=== PATIENT | female | born 1980 | race Caucasian/White ===

== ENCOUNTER 2021-07-05 07:23 | Emergency (ER) | payer BC ==
[~2021-07-05] VITALS: Ht 180.3 cm; Wt 113.6 kg
[2021-07-05 08:22] LABS: BASOPHILS % (AUTO) 0.4 % (0-1); EOSINOPHILS # (AUTO) 0.2 X10'3 (0-0.9); EOSINOPHILS % (AUTO) 3.6 % (0-6); HEMATOCRIT 42.2 % (35.0-45.0); HEMOGLOBIN 14.4 g/dl (12.0-16.0); LYMPHOCYTES % (AUTO) 29.2 % (21-51); MEAN CORPUSCULAR HEMOGLOBIN 28.6 PG (27.0-31.0); MEAN CORPUSCULAR HGB CONC 34.2 g/dL (33.0-36.5); MEAN CORPUSCULAR VOLUME 83.6 FL (78-98); MEAN PLATELET VOLUME 8.1 FL (7.4-10.4); MONOCYTES # (AUTO) 0.6 X10'3 (0-0.9); MONOCYTES % (AUTO) 8.1 % (2-12); NEUTROPHILS # (AUTO) 4.1 X10'3 (1.8-7.7); NEUTROPHILS % (AUTO) 58.7 % (42-75); PLATELET COUNT 235 X10'3 (140-440); RED BLOOD COUNT 5.05 X10'6 (4.20-5.60); RED CELL DISTRIBUTION WIDTH 13.7 % (11.5-14.5); WHITE BLOOD COUNT 6.9 X10'3 (4.5-11.0)
[2021-07-05] MEDS ORDERED: atropine 1 MG/1 ML vial IV ONE (08:35)
[2021-07-05] MEDS ORDERED: morphine 4 MG/ML inj SYRINge IV ONE ×5 (08:35→13:45)
[2021-07-05] MEDS ORDERED: ringers solution, lacted 1,000 ML IV ONE (08:35)
[2021-07-05 08:37] LABS: ALANINE AMINOTRANSFERASE 19 U/L (12-78); ALBUMIN 3.9 G/DL (3.4-5.0); ALKALINE PHOSPHATASE 79 IU/L (46-116); ANION GAP 13 (8-16); ASPARTATE AMINO TRANSFERASE 19 U/L (10-37); BILIRUBIN,TOTAL 0.4 MG/DL (0.1-1.0); BLOOD UREA NITROGEN 9 MG/DL (7-18); BUN/CREATININE RATIO 11.8 (6.6-38.0); CALCIUM 8.6 MG/DL (8.5-10.1); CHLORIDE 105 MMOL/L (99-107); CREATININE 0.76 MG/DL (0.40-0.90); GLUCOSE 119 MG/DL (70-104); LIPASE 147 U/L (73-393); POTASSIUM 4.1 MMOL/L (3.5-5.1); SODIUM 139 MMOL/L (135-145); TOTAL CARBON DIOXIDE 21.1 MMOL/L (24-32); TOTAL PROTEIN 7.8 G/DL (6.4-8.2); eGFR 85 ML/MIN
[2021-07-05] MEDS ORDERED: atropine 0.1mg/ml 10ml syringe IV ONE (08:45)
--- NOTE | 2021-07-05 09:01 | NUR ---
Pt still in severe pain. Requesting antinflammatory.
[2021-07-05] MEDS ORDERED: ketorolac trometh. 30mg/ml inj. IV ONE ×2 (09:05→13:55)
[2021-07-05] MEDS ORDERED: ondansetron/PF 4mg/2ml inj IV ONE ×2 (09:10→17:45)
[2021-07-05 10:21] LABS: CLARITY,URINE CLOUDY (Clear); COLOR,URINE YELLOW (Yellow); GLUCOSE, URINE NEGATIVE (Neg); LEUKOCYTE ESTERASE ,URINE NEGATIVE (Neg); NITRITES, URINE POSITIVE (Neg); PH,URINE 8.5 (4.8-8.0); PROTEIN,URINE NEGATIVE (Neg); URINE HCG NEGATIVE (NEG); UROBILINOGEN,URINE 0.2 E.U/dL (0.2-1.0)
[2021-07-05 10:39] LABS: KETONES,URINE TRACE mg/dl (Neg); OCCULT BLOOD,URINE MODERATE (Neg)
--- NOTE | 2021-07-05 10:45 | NUR ---
Pt feeling much better. Pain tolerable, resting comfortably.
[2021-07-05 10:47] LABS: UA COLLECTION TYPE NON-SPECIFIED
[2021-07-05 10:49] LABS: AMORPHOUS PHOSPHATES 2+
[2021-07-05 10:50] LABS: BACTERIA,URINE 4+ /HPF (Neg); MUCUS STRANDS NONE SEEN /LPF (Neg); SQUAMOUS EPITHELIAL CELL,UR MODERATE /LPF (FEW)
--- NOTE | 2021-07-05 13:25 | NUR ---
Pt c/o pain again. re-eval. MD notified.
[2021-07-05] MEDS ORDERED: ALBU6.7H9 INH ×2 (13:41)
--- NOTE | 2021-07-05 13:44 | NUR ---
Warm blankets provided and more pain medication.
[2021-07-05] MEDS ORDERED: tamsulosin 0.4mg capsule PO SCH (17:05)
[2021-07-05] MEDS ORDERED: tamsulosin 0.4mg capsule PO ONE (17:05)
[2021-07-05] MEDS ORDERED: MELO-102 PO (17:08)
[2021-07-05] MEDS ORDERED: FLO0.4C PO (17:09)
[2021-07-05] MEDS ORDERED: acetaminophen 1,000mg/100ml IV 100 ML IV SCH (17:10)
[2021-07-05] MEDS ORDERED: acetaminophen 1,000mg/100ml IV 100 ML IV ONE (17:23)
--- NOTE | 2021-07-05 17:35 | NUR ---
Pt vomited again. est. for 6-7th time here in ER. improved after zofran, but nauseated with water/ice chips. Pt vomited up Md lila notified.
[2021-07-05 17:40] VITALS: BP 135/87
[2021-07-05] MEDS ORDERED: cefTRIAXone 1g/NS 100ml IVPB 100 ML IV ONE (17:45)
--- NOTE | 2021-07-05 17:46 | NUR ---
Talked with Dr Rahman about pt. Pt still vomiting and in pain. Case discussed. Will finish tylenol and give IV abx as ordered.
[2021-07-05] MEDS ORDERED: metoclopramide 5 mg/ml inj IV ONE (18:15)
[2021-07-05] MEDS ORDERED: ondansetron 4mg rapidly disintigrating tab PO ONE (19:00)
[2021-07-05] MEDS ORDERED: oxyCODONE IR 5mg (immed. release) tablet PO ONE (19:00)
[2021-07-05] MEDS ORDERED: ONDA8TAB13 PO (19:01)
[2021-07-05] MEDS ORDERED: CIPR-202 PO (19:01)
== END 2021-07-05 19:48 | disposition home or self-care (01) ==
LOC: EEVIPCON 07:24 → ER 07:24
DX: N20.0 Calculus of kidney (principal); Z88.8 Allergy status to other drugs, medicaments and biological substances; Z79.899 Other long term (current) drug therapy
CPT/HCPCS: 36415; 74150; 80053; 81001; 81025; 83690; 85025; 87077; 87088; 87186; 96361; 96365; 96375; 96376; 99285; J0131; J0461; J0696; J1885; J2270; J2405; J2765; J7120

== ENCOUNTER 2021-08-07 23:31 | Emergency (ER) | payer BC ==
[~2021-08-07] VITALS: Ht 180.3 cm; Wt 109.1 kg
[~2021-08-07 23:31] MED LIST: MELO-102 PO; ONDA8TAB13 PO
[2021-08-08 00:14] LABS: BASOPHILS % (AUTO) 0.3 % (0-1); EOSINOPHILS # (AUTO) 0.1 X10'3 (0-0.9); EOSINOPHILS % (AUTO) 1.2 % (0-6); HEMATOCRIT 39.7 % (35.0-45.0); HEMOGLOBIN 13.9 g/dl (12.0-16.0); LYMPHOCYTES # (AUTO) 1.5 X10'3 (1.1-4.8); LYMPHOCYTES % (AUTO) 16.1 % (21-51); MEAN CORPUSCULAR HEMOGLOBIN 29.4 PG (27.0-31.0); MEAN CORPUSCULAR VOLUME 83.9 FL (78-98); MEAN PLATELET VOLUME 8.4 FL (7.4-10.4); MONOCYTES # (AUTO) 0.6 X10'3 (0-0.9); MONOCYTES % (AUTO) 6.2 % (2-12); NEUTROPHILS # (AUTO) 7.1 X10'3 (1.8-7.7); NEUTROPHILS % (AUTO) 76.2 % (42-75); PLATELET COUNT 184 X10'3 (140-440); RED BLOOD COUNT 4.73 X10'6 (4.20-5.60); WHITE BLOOD COUNT 9.3 X10'3 (4.5-11.0)
[2021-08-08 00:19] LABS: CLARITY,URINE CLEAR (Clear); COLOR,URINE YELLOW (Yellow); GLUCOSE, URINE NEGATIVE (Neg); KETONES,URINE TRACE mg/dl (Neg); LEUKOCYTE ESTERASE ,URINE NEGATIVE (Neg); NITRITES, URINE NEGATIVE (Neg); OCCULT BLOOD,URINE LARGE (Neg); PROTEIN,URINE NEGATIVE (Neg); UROBILINOGEN,URINE 0.2 E.U/dL (0.2-1.0)
[2021-08-08 00:24] LABS: URINE HCG NEGATIVE (NEG)
[2021-08-08 00:28] LABS: ALANINE AMINOTRANSFERASE 14 U/L (12-78); ALBUMIN/GLOBULIN RATIO 1.1 (1.1-1.5); ALKALINE PHOSPHATASE 74 IU/L (46-116); ANION GAP 9 (8-16); ASPARTATE AMINO TRANSFERASE 9 U/L (10-37); BILIRUBIN,TOTAL 0.5 MG/DL (0.1-1.0); BLOOD UREA NITROGEN 10 MG/DL (7-18); BUN/CREATININE RATIO 13.9 (6.6-38.0); CALCIUM 8.9 MG/DL (8.5-10.1); CHLORIDE 105 MMOL/L (99-107); CREATININE 0.72 MG/DL (0.40-0.90); GLUCOSE 119 MG/DL (70-104); LIPASE 169 U/L (73-393); POTASSIUM 3.5 MMOL/L (3.5-5.1); SODIUM 139 MMOL/L (135-145); TOTAL PROTEIN 7.5 G/DL (6.4-8.2); eGFR 90 ML/MIN
[2021-08-08 00:28] LABS: UA COLLECTION TYPE CLN CATCH MIDSTREAM
[2021-08-08 00:30] LABS: BACTERIA,URINE 1+ /HPF (Neg); RBC,URINE 20-50 /HPF (0-2); SQUAMOUS EPITHELIAL CELL,UR FEW /LPF (FEW)
[2021-08-08] MEDS ORDERED: ondansetron/PF 4mg/2ml inj IV ONE (02:15)
[2021-08-08] MEDS ORDERED: ketorolac trometh. 30mg/ml inj. IV ONE (02:15)
[2021-08-08] MEDS ORDERED: ONDA8TAB13 PO (02:16)
[2021-08-08 02:36] VITALS: BP 116/76
== END 2021-08-08 02:37 | disposition home or self-care (01) ==
LOC: ER 23:32
DX: N20.0 Calculus of kidney (principal); Z79.899 Other long term (current) drug therapy
CPT/HCPCS: 36415; 80053; 81001; 81025; 83690; 85025; 87088; 96374; 96375; 99284; J1885; J2405

== ENCOUNTER 2021-10-07 14:32 | Emergency (ER) | payer BC ==
[~2021-10-07] VITALS: Ht 180.3 cm; Wt 95.5 kg
[2021-10-07 14:46] VITALS: BP 118/47
[2021-10-07] MEDS ORDERED: CEPH500C2 PO (15:17)
[2021-10-07] MEDS ORDERED: cephalexin 250mg capsule PO ONE (15:20)
== END 2021-10-07 16:47 | disposition home or self-care (01) ==
LOC: EEVIPCON 14:33 → ER 14:33
DX: N39.0 Urinary tract infection, site not specified (principal); Z87.442 Personal history of urinary calculi; Z88.8 Allergy status to other drugs, medicaments and biological substances; Z79.899 Other long term (current) drug therapy; Z79.2 Long term (current) use of antibiotics
CPT/HCPCS: 99283

== ENCOUNTER 2023-08-24 15:17 | Emergency (ER) | payer BC, OTHER ==
[~2023-08-24] VITALS: Ht 180.3 cm; Wt 117.7 kg
[2023-08-24 15:23] VITALS: BP 143/88; PULSE 87; O2SAT 97
[2023-08-24 16:01] VITALS: RESP 18; TEMP 98
== END 2023-08-24 16:02 | disposition home or self-care (01) ==
LOC: ER 15:17
DX: S50.11XA Contusion of right forearm, initial encounter (principal); Z88.8 Allergy status to other drugs, medicaments and biological substances; Z79.2 Long term (current) use of antibiotics; Z79.899 Other long term (current) drug therapy; Y08.89XA Assault by other specified means, initial encounter; Y93.89 Activity, other specified; Y92.89 Other specified places as the place of occurrence of the external cause; Y99.8 Other external cause status
CPT/HCPCS: 99281